=== PATIENT | female | born 1940 | race Hispanic/Latino ===

== ENCOUNTER 2017-10-09 07:01 | Day surgery (SDC) | payer OTHER ==
[2017-09-26 07:06] VITALS: BMI 26.2
[2017-10-09 07:47] LABS: CALCIUM 9.3 mg/dL (8.4-10.5)
[2017-10-09 07:53] LABS: INR 0.91 (0.93-1.08); PARTIAL THROMBOPLASTIN TIME 28.2 Seconds (25.1-36.5); PROTHROMBIN TIME 10.5 SECONDS (9.4-12.5)
[2017-10-09 08:06] LABS: BASO # 0.02 K/mm3 (0.0-2.0); BASO % 0.2 % (0.0-3.0); EOS # 0.2 (0.0-0.7); EOS % 2.7 % (1.5-5.0); GRAN # 5.54 (1.4-6.5); LYMPH # 2.3 (1.2-3.4); LYMPH % 26.5 % (22.0-35.0); MEAN CELL VOLUME 93.1 fl (80.0-105.0); MEAN CORPUSCULAR HEMOGLOBIN 29.6 pg (25.0-35.0); MEAN CORPUSCULAR HGB CONC 31.8 g/dl (31.0-37.0); MEAN PLATELET VOLUME 10.3 fl (7.0-11.0); MONO # 0.7 (0.1-0.6); MONO % 7.6 % (1.0-6.0); RBC 4.05 10^6/uL (3.5-6.1); RED CELL DISTRIBUTION WIDTH 12.6 % (11.5-14.5); WHITE BLOOD COUNT 8.8 10^3/ul (4.5-11.0)
[2017-10-09] MEDS ORDERED: Iodixanol 320 MG/ML 200 ML BOTTLE IV ONE (08:13)
[2017-10-09] MEDS ORDERED: Nitroglycerin 50mg in D5W 0 MG/0 ML BOTTLE IV ONE (08:13)
[2017-10-09] MEDS ORDERED: HEPARIN SODIUM/NS 2,000 ML IV ONE (08:13)
[2017-10-09] MEDS ORDERED: Lidocaine 2% Inj (20ml) ONE (08:13)
--- NOTE | 2017-10-09 08:27 | HP ---
REASON FOR ADMISSION: Left heart cath, possible angioplasty, abnormal stress test. BRIEF CLINICAL HISTORY: This is a 77-year-old female with a past medical history significant for coronary artery disease, status post PTCA of RCA ostial on 09/13/2015, came for a followup, had an abnormal stress test, LAD totally occluded. 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 PREVIOUS CARDIAC WORKUP: As follows: The patient had echocardiography, ejection fraction of 70%, mild MR, mild TR, [id number] aortic regurgitation, dated 08/29/2017, ejection fraction 70%, mild mitral and mild tricuspid regurgitation, mild aortic regurgitation. The patient had a stress test dated 08/29/2017, abnormal myocardial perfusion study, reversible small distal anteroseptal and apical defect, suggestive of ischemia, normal ejection fraction of 66%. The patient had a prior cardiac catheterization and angioplasty dated 09/22/2015 at [facility]. At that time, the cardiac catheterization revealed left main distal 30% to 40% stenosis LAD, ramus intermedius and circumflex, LAD has proximal 40% stenosis, mid LAD 100% occlusion noted, ramus is a large caliber vessel and supply the lateral wall, free of any significant disease. Circumflex shows some luminal irregularities, but no flow obstruction or stenosis noted. Right coronary artery is a dominant large caliber vessel, ostial 80% to 90% stenosis noted, mid right coronary artery 40% stenosis noted, LV gram shows ejection fraction of 55%, aortic pressure 100/80, LV pressure 100/60, EDP was in the range of 6 to 8, successful PTCA of ostial right coronary artery was done at that time and the recommendation was if the patient remains symptomatic, may consider PCI high risk case, so medical treatment recommended since then. Most recently, stress test shows apical septal is very small, reversible ischemia. CURRENT MEDICATIONS: The patient is taking aspirin 81 mg daily, losartan 25 mg, gabapentin, ferrous sulfate, Zocor, and multivitamin. ALLERGIES: NO KNOWN DRUG ALLERGIES. REVIEW OF SYSTEMS: As per HPI. PHYSICAL EXAMINATION: As follows: VITAL SIGNS: Height of the patient is 5 feet 8 inches, weight of the patient is 135 pounds, blood pressure 110/60, heart rate 60. HEENT: PERRLA, intact. NECK: Supple. No carotid bruits or thyromegaly. CHEST: Clear to auscultation. HEART: S1 and S2 regular. ABDOMEN: Soft. EXTREMITIES: Clubbing and cyanosis negative. LABORATORY DATA: Pending. IMPRESSION: Abnormal stress test, treadmill time 7 minutes and 21 seconds, it shows a small distal apical ischemia. Echo shows ejection fraction of 70%, mild MR, mild TR, [id number] aortic regurgitation, hyperlipidemia, history of coronary artery disease, status post PTCA of ostial right coronary artery, history of LAD totally occluded, mid. RECOMMENDATION: Cardiac catheterization. The patient agreed and we will proceed for cardiac catheterization. Further recommendation after the cardiac catheterization. Thank you Dr. Reese for providing us the opportunity in taking care of the patient, Ibis Kruse. Casimiro Dupont MD
[2017-10-09] MEDS ORDERED: Midazolam 2 MG/2 ML VIAL ONE ×2 (08:42→09:26)
[2017-10-09] MEDS ORDERED: Sodium Chloride 0.9% 1,000 ML IV SCH (10:15)
--- NOTE | 2017-10-09 10:28 | CARD ---
APPROVED REPORT EKG Measurement Heart [id number] <Conclusion> Normal sinus rhythm Right bundle branch block
[2017-10-09 10:54] VITALS: TEMP 97.4
[2017-10-09 12:57] VITALS: RESP 18
[2017-10-09 14:54] VITALS: O2SAT 96
[2017-10-09 14:55] LABS: CALCIUM 8.6 mg/dL (8.4-10.5)
[2017-10-09 14:56] VITALS: BP 127/71; PULSE 73
--- NOTE | 2017-10-09 17:46 | CARD ---
APPROVED REPORT Procedure(s) performed: Left Heart Catheterization HISTORY The patient is a 77 year-old female with a history of : most recent EF: 66%. (EF Method: RADIONUCLIDE), diabetes mellitus with oral treatment , previous diagnostic cath, previous PCI (The PCI date was 09/22/2015), hypertension , dyslipidemia . INDICATION The indication(s) include : positive stress test. CASE TECHNIQUE The patient was brought electively to the Cardiac Catheterization Laboratory in a fasting state and was prepped and draped in a sterile manner. The was infiltrated with 2% Lidocaine subcutaneous anesthesia. A 6 Fr x 11 cm Maryuri sheath was inserted into the right femoral artery without difficulty. Coronary angiography was performed using coronary diagnostic catheters. The left coronary system was accessed and visualized with a Diagnostic ,6 Fr JL 4 catheter. The right coronary system was accessed and visualized with a Diagnostic , 6 Fr JR 4 catheter. The left ventricle was accessed and visualized with a 6 Fr Pigtail catheter. Left ventricular/Aortic Valve gradient assessed on pullback. Left ventriculogram was performed in FLORES projection. Closure device was deployed with a 6 Fr / 7 Fr MynxGrip without any complications. Vessel Analysis The patient's coronary anatomy is right dominant. The left main coronary artery is a medium size vessel with diffuse calcification noted throughout this vessel and without significant stenosis. There is a 20-30% stenosis in the ostial segment. The left main bifurcates to the left anterior descending and circumflex. The left anterior descending artery is a medium size vessel with diffuse calcification noted throughout this vessel and with significant stenosis. There is a 100% stenosis in the mid segment. The first diagonal branch is a small size vessel with diffuse calcification noted throughout this vessel and without significant stenosis. The circumflex artery is a medium size vessel with diffuse calcification noted throughout this vessel and without significant stenosis. There is a 30% stenosis in the proximal segment. The first obtuse marginal branch is a small size vessel with diffuse calcification noted throughout this vessel and without significant stenosis. The ramus intermedius artery is a large size vessel with diffuse calcification noted throughout this vessel and without significant stenosis. The right coronary artery is a large size vessel with diffuse calcification noted throughout this vessel and without significant stenosis. patent stent n ostium There is a 20-30% stenosis in the mid segment. The right posterior descending artery is a medium size vessel with diffuse calcification noted throughout this vessel and without significant stenosis. The right posterolateral branch is a medium size vessel with diffuse calcification noted throughout this vessel and without significant stenosis. Left Ventricle The left ventricle is normal in size with normal contractility. There was no cardiomyopathy. The left ventricular ejection fraction is estimated to be 55-60%. The left ventricular end diastolic pressure is 16 mmHg. There was no gradient across the aortic valve upon pullback. 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 Patent stent in Ostial RCA Preserved LV FX. EF-55-60%, EDP-16 mmof Hg. Recommendations Aggressive Medical TherapyCardiac Risk Reduction Program CC; Dr. Duffy
== END 2017-10-09 16:30 | disposition home or self-care (01) ==
LOC: CATH 07:01 → EDSEX 08:30 → CATH 16:30
PROVIDERS: ATTEND Internal Medicine Cardiovascular Disease
DX: I25.10 Atherosclerotic heart disease of native coronary artery without angina pectoris (principal); E78.5 Hyperlipidemia, unspecified; I10 Essential (primary) hypertension; E11.9 Type 2 diabetes mellitus without complications; Z95.5 Presence of coronary angioplasty implant and graft
CPT/HCPCS: 36415; 80048; 80061; 85025; 85610; 85730; 86850; 86900; 93005; 93458; 99152; C1760; C1769; C2629; J1644; J2250; J3010; J7040 ×2